=== PATIENT | female | born 1985 | race Caucasian/White ===

== ENCOUNTER 2022-03-15 06:08 | Day surgery (SDC) | payer SELFPAY ==
[2022-03-09 10:06] VITALS: BMI 23.0
[2022-03-15] MEDS ORDERED: SUCCINYLCHOLINE CHLORIDE 200 MG/10 ML SYRINGE ONE (06:52)
[2022-03-15] MEDS ORDERED: PROPOFOL 80 ML ONE (06:52)
[2022-03-15] MEDS ORDERED: ROCURONIUM BROMIDE 50 MG/5 ML SYRINGE ONE (06:53)
[2022-03-15] MEDS ORDERED: MIDAZOLAM HCL 2 MG/2 ML SINGLE DOSE VIAL ONE (06:53)
[2022-03-15] MEDS ORDERED: SEVOFLURANE 250 ML BTL ONE (06:53)
[2022-03-15] MEDS ORDERED: LIDOCAINE HCL 2% JELLY 11 ML TP ONE (06:59)
[2022-03-15] MEDS ORDERED: ceFAZolin SODIUM 1 GM VIAL ONE ×3 (07:28→12:50)
[2022-03-15] MEDS ORDERED: GENTAMICIN SO4 80 MG/2 ML VIAL ONE ×2 (07:28→12:50)
[2022-03-15] MEDS ORDERED: BACITRACIN 15 GM TUBE TOPICAL OINTMENT ONE (07:28)
[2022-03-15] MEDS ORDERED: LIDOCAINE 1%-EPI 1:100,000 30 ML MDV IJ ONE (07:29)
[2022-03-15] MEDS ORDERED: GUM MASTIC/STORAX/MSAL/ALCOHOL 1 DRP DROPSBTL MC ONE (07:29)
[2022-03-15] MEDS ORDERED: BUPIVACAINE HCL/PF 2.5 MG/ML - 30 ML VIAL IJ ONE (07:29)
[2022-03-15] MEDS ORDERED: SCOPOLAMINE HYDROBROMIDE 1 PATCH PATCH.TD72 ONE (07:49)
[2022-03-15] MEDS ORDERED: EPINEPHrine/PF 1 MG/1 ML (1:1,000) AMPULE ONE (07:58)
[2022-03-15] MEDS ORDERED: LIDOCAINE HCL 1%, 10 MG/ML (20ML VIAL) ONE (07:58)
[2022-03-15] MEDS ORDERED: DEXAMETHASONE SOD PHOSPHATE 4 MG/1 ML VIAL ONE (09:59)
[2022-03-15] MEDS ORDERED: ONDANSETRON 4 MG/2 ML VIAL ONE (09:59)
[2022-03-15] MEDS ORDERED: KETOROLAC TROMETHAMINE 30 MG/1 ML VIAL ONE (09:59)
[2022-03-15] MEDS ORDERED: HYDROmorphone HCL/PF 1 MG/ML VIAL ONE (11:20)
[2022-03-15] MEDS ORDERED: PROPOFOL 60 ML ONE (14:23)
[2022-03-15] MEDS ORDERED: BUPIVACAINE HCL/PF 0.25% (2.5MG/ML) 10 ML VIAL IJ ONE (15:18)
[2022-03-15] MEDS ORDERED: ACETAMINOPHEN 1000 MG/100 ML BAG IVPB ONE (15:50)
[2022-03-15] MEDS ORDERED: ONDANSETRON 4 MG/2 ML VIAL IVPUSH PRN (15:50)
[2022-03-15] MEDS ORDERED: oxyCODONE HCL 5 MG TABLET PO PRN ×2 (15:50)
[2022-03-15] MEDS ORDERED: FENTANYL CITRATE/PF 50 MCG/ML VIAL ONE (15:57)
[2022-03-15 17:16] VITALS: RESP 16; TEMP 97.7
[2022-03-15] MEDS ORDERED: oxyCODONE HCL 5 MG TABLET PO ONE (17:22)
[2022-03-15] MEDS ORDERED: oxyCODONE HCL 5 MG TABLET ONE (17:24)
[2022-03-15 18:03] VITALS: BP 108/68; PULSE 87
== END 2022-03-15 18:00 | disposition home or self-care (01) ==
LOC: FASU 06:08
PROVIDERS: ATTEND Surgery
CPT/HCPCS: 81025; 88305-TC; 94760